=== PATIENT | male | born 1985 ===

== ENCOUNTER 2020-07-30 05:57 | Day surgery (SDC) | payer OTHER ==
[2020-07-30] MEDS ORDERED: LACTATED RINGERS 1,000 ML ONE (06:46)
[2020-07-30] MEDS ORDERED: DEXAMETHASONE INJ 10 MG/ML VIAL ONE (07:00)
[2020-07-30] MEDS ORDERED: KETOROLAC TROMETHAMINE INJ 30 MG/ML VIAL ONE (07:00)
[2020-07-30] MEDS ORDERED: PROPOFOL 200 MG/20 ML VIAL IV ONE (07:00)
[2020-07-30] MEDS ORDERED: diphenhydrAMINE HCL 50 MG/ML VIAL ONE (07:00)
[2020-07-30] MEDS ORDERED: ceFAZolin SODIUM 1 GM VIAL ONE (07:00)
[2020-07-30] MEDS ORDERED: MAGNESIUM SULFATE INJ 1 GM/2 ML VIAL ONE (07:00)
[2020-07-30] MEDS ORDERED: BUPIVACAINE 0.25% W/EPI 50 ML VIAL INJ ONE (07:09)
[2020-07-30] MEDS ORDERED: MIDAZOLAM INJ 2 MG/2 ML VIAL ONE (09:10)
[2020-07-30] MEDS ORDERED: DEXMEDETOMIDINE HCL 200 MCG/2 ML INJ IV ONE (09:10)
[2020-07-30] MEDS ORDERED: FAMOTIDINE INJ 10 MG/ML VIAL IV ONE (09:10)
[2020-07-30] MEDS ORDERED: fentaNYL CITRATE INJ 50 MCG/ML 2 ML AMP ONE (09:10)
[2020-07-30] MEDS ORDERED: LACTATED RINGERS 600 ML IVS ONE (10:18)
[2020-07-30] MEDS ORDERED: HYDROcodone 5MG/APAP 325MG 1 EA TAB ONE (10:54)
--- NOTE | 2020-07-30 10:59 | OP ---
DATE OF PROCEDURE: 07/30/20 PREOPERATIVE DIAGNOSIS: 1. Large right inguinal hernia. POSTOPERATIVE DIAGNOSIS: 1. Large right inguinal hernia. PROCEDURE: 1. Repair of large right inguinal hernia. 2. Removal of 5 cm retroperitoneal tumor. 3. Ilioinguinal nerve block, right, for postoperative pain control. SURGEON: Morgan Miranda MD. ANESTHESIA: General, Jacob Mendoza CRNA. FINDINGS: Very large sac going deep into the scrotum. It was successfully . There was a large cord lipoma coming through the internal ring. This was excised. All the vessels and ilioinguinal nerve were spared and protected. COMPLICATIONS: None. ESTIMATED BLOOD LOSS: Minimal. SPECIMEN: Lipoma and hernia sac. PLAN: Discharge. INDICATION: As stated. PROCEDURE: General anesthesia was induced. He was prepped and draped in sterile fashion. Marcaine 0.5% with epinephrine was used at the incision site as well as 3 cc performing ilioinguinal nerve block for postoperative pain control based on anatomic landmarks. Incision was made. Subcutaneous tissues were taken down. The subcutaneous vessel was identified and divided. The external oblique aponeurosis was identified. A sushil was made. It was opened along its fibers and elevated with hemostats. We identified the nerve, dissected it out and kept it superiorly out of harm's way. The large complex hernia was then isolated off the pubis and surrounded with a Yonatan drain. We then slowly dissected, the sac from the tissue and the cord structures. That is when we identified the moderately large cord lipoma. This was ligated high with 2-0 Vicryl and removed. We then continued to dissect the sac. It went to the distal scrotum before the testicle, though the testicle was slightly in the wound. We tried not to disrupt its normal attachments. The cord was dissected off down to the base. I did remove about half of it, tied it and then that was reduced. We then entered the preperitoneal plane. [place] retractor was used to keep the epigastric vessels anteriorly while we used 3 moist Ray-Carmen sponges and finger sweep to dissect out the preperitoneal plane. Once this was completed, there was no bleeding. The large PHS mesh was trimmed inferiorly and then placed in the preperitoneal plane with retraction and instruments to ensure that the anterior mesh was flat in the preperitoneal plane. A sushil was made, wrapped around the cord, non-stricturing and then secured at the shelving edge. The medial mesh was secured at the tubercle. At this point, the mesh was then laid out underneath the lateral external oblique and superiorly, ensuring again that the nerve was out of harm's way as we closed the external oblique with a running 2-0 Vicryl. More local anesthesia was then placed. We ensured that the testicle was back in the scrotum in normal position and then closed the wound in two additional layers with absorbable suture. He tolerated the procedure. The patient was awakened and taken to Recovery to be discharged. #[id number] MTDD
[2020-07-30 12:10] VITALS: BP 145/95; TEMP 97.3; O2SAT 97
== END 2020-07-30 11:30 ==
LOC: AMB 05:57
PROVIDERS: ATTEND Surgery
DX: K40.90 Unilateral inguinal hernia, without obstruction or gangrene, not specified as recurrent (principal); D17.6 Benign lipomatous neoplasm of spermatic cord; G89.18 Other acute postprocedural pain; Z87.891 Personal history of nicotine dependence
CPT/HCPCS: 00830; 49505; 55520; J0690; J1100; J1200; J1885; J2250; J3010; J3475; J3490; J7120